=== PATIENT | male | born 1975 | race African-American/Black ===

== ENCOUNTER → 2022-02-24 | Outpatient (CLI) | payer BC ==
--- NOTE | 2022-02-25 08:36 | KCIC ---
AP and Lateral Views of the Chest 02/24/2022 4:00 PM Indication: Viral bronchitis. History of Covid Comparison: Chest radiograph May 14, 2010 Findings: There is no focal consolidation or infiltrate identified. The cardiomediastinal silhouette is within normal limits. There is no evidence of pneumothorax or pleural effusion. No acute osseous a bnormalities are identified. Impression: No evidence of acute cardiopulmonary process. Electronically signed by: Ashish Amador MD (02/25/2022 8:33 AM) [id number]
== END ==
LOC: KCIC 15:57
PROVIDERS: ATTEND Family Medicine
DX: J20.8 Acute bronchitis due to other specified organisms (principal)
CPT/HCPCS: 71046